=== PATIENT | male | born 2000 | race Hispanic/Latino ===

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

== ENCOUNTER 2023-04-19 17:57 | Emergency (ER) | payer OTHER, SELFPAY | END 2023-04-19 18:35 | disposition home or self-care (01) | LOC: ERS 17:57 | DX: Z00.00 Encounter for general adult medical examination without abnormal findings (principal); F17.200 Nicotine dependence, unspecified, uncomplicated | CPT/HCPCS: 99282 ==